=== PATIENT | female | born 1985 ===

== ENCOUNTER 2023-09-05 18:58 | Observation (INO) | payer BC ==
[2023-09-05] MEDS: HYDROmorphone 1 MG/ML Syringe IVPUSH ONE (20:02)
[2023-09-05] MEDS: Sodium Chloride 0.9% 1,000 ML IV ONE (20:02)
[2023-09-05] MEDS: Ondansetron 4 MG/2 ML SDV IVPUSH STA (20:24)
[2023-09-05] MEDS: fentaNYL 50 MCG/ML SDV ONE (20:28)
[2023-09-05] MEDS: Ondansetron 4 MG/2 ML SDV ONE (20:28)
[2023-09-05] MEDS: HYDROmorphone 1 MG/ML Syringe ONE (20:28)
[2023-09-05 20:59] LABS: APPEARANCE,URINE CLEAR (CLEAR); BILIRUBIN,URINE NEGATIVE (NEGATIVE); COLOR,URINE YELLOW (YELLOW); GLUCOSE,URINE NEGATIVE (NEGATIVE); KETONES,URINE 40 mg/dL (NEGATIVE); LEUKOCYTE ESTERASE,URINE NEGATIVE (NEGATIVE); NITRITE,URINE NEGATIVE (NEGATIVE); OCCULT BLOOD,URINE NEGATIVE (NEGATIVE); PH,URINE 8.5 (4.5-8.0); PROTEIN,URINE NEGATIVE (NEGATIVE); UROBILINOGEN,URINE 0.2 EU/dL (0.2-1.0)
[2023-09-05 21:02] LABS: BASOPHILS ABSOLUTE AUTO 0.05 10^3/uL (0.00-0.50); BASOPHILS PERCENT AUTO 0.4 % (0-1); HEMOGLOBIN 13.5 g/dL (12.0-16.0); IMMATURE GRAN ABSOLUTE AUTO 0.03 10^3/uL (0.00-0.49); IMMATURE GRAN PERCENT AUTO 0.3 % (0.0-4.9); LYMPHOCYTES ABSOLUTE AUTO 1.56 10^3/uL (0.60-5.00); MEAN CORPUSCULAR HEMOGLOBIN 28.8 pg (27.0-32.0); MEAN CORPUSCULAR HGB CONC 33.8 g/dL (32.0-36.0); MEAN CORPUSCULAR VOLUME 85.5 fL (83.0-97.0); MONOCYTES ABSOLUTE AUTO 0.37 10^3/uL (0.00-1.50); MONOCYTES PERCENT AUTO 3.3 % (0-10); NEUTROPHILS ABSOLUTE AUTO 9.16 x10^3/uL (1.80-8.00); PLATELET COUNT,PLT 263 10^3/uL (150-400); RED BLOOD CELL COUNT 4.68 x10^6/uL (4.00-5.50); WHITE BLOOD CELL COUNT,WBC 11.2 10^3/uL (4.0-11.0)
[2023-09-05 21:16] LABS: ALBUMIN 3.1 g/dL (3.4-5.0); BILIRUBIN TOTAL 0.6 mg/dL (0.0-1.0); CALCIUM 8.9 mg/dL (8.4-10.1); EST CRCL DRUG DOSING (CG) 59.15 mL/min; MAGNESIUM 1.8 mg/dL (1.8-2.4); POTASSIUM,K 3.3 mEq/L (3.5-5.0); PROTEIN TOTAL,TP 8.1 g/dL (6.4-8.2)
[2023-09-05] MEDS ORDERED: Acetaminophen 325 MG Tab PO PRN (21:52)
[2023-09-05] MEDS ORDERED: Promethazine 12.5 MG in Sodium Chloride 0.9% 50 ML IV PRN (21:52)
[2023-09-05] MEDS ORDERED: Ondansetron 4 MG Tab.DIS PO PRN (21:52)
[2023-09-05] MEDS: Potassium Chloride 10 MEQ Tab.ER PO ONE (22:03)
[2023-09-05] MEDS: Sodium Chloride 0.9% 1,000 ML IV SCH (22:03)
[2023-09-06] MEDS: Ondansetron 4 MG/2 ML SDV IV PRN (00:37)
[2023-09-06] MEDS: HYDROmorphone 1 MG/ML Syringe IVPUSH PRN (00:37)
[2023-09-06 07:36] LABS: BASOPHILS ABSOLUTE AUTO 0.03 10^3/uL (0.00-0.50); BASOPHILS PERCENT AUTO 0.3 % (0-1); EOSINOPHILS ABSOLUTE AUTO 0.01 10^3/uL (0.00-1.50); EOSINOPHILS PERCENT AUTO 0.1 % (0-6); HEMATOCRIT 38.6 % (37.0-47.0); IMMATURE GRAN ABSOLUTE AUTO 0.02 10^3/uL (0.00-0.49); IMMATURE GRAN PERCENT AUTO 0.2 % (0.0-4.9); LYMPHOCYTES ABSOLUTE AUTO 1.65 10^3/uL (0.60-5.00); LYMPHOCYTES PERCENT AUTO 16.1 % (24-44); MEAN CORPUSCULAR HEMOGLOBIN 28.6 pg (27.0-32.0); MEAN CORPUSCULAR HGB CONC 33.7 g/dL (32.0-36.0); MEAN CORPUSCULAR VOLUME 84.8 fL (83.0-97.0); MONOCYTES ABSOLUTE AUTO 0.44 10^3/uL (0.00-1.50); MONOCYTES PERCENT AUTO 4.3 % (0-10); NEUTROPHILS ABSOLUTE AUTO 8.07 x10^3/uL (1.80-8.00); PLATELET COUNT,PLT 249 10^3/uL (150-400); RED BLOOD CELL COUNT 4.55 x10^6/uL (4.00-5.50); WHITE BLOOD CELL COUNT,WBC 10.2 10^3/uL (4.0-11.0)
[2023-09-06] MEDS: Losartan 25 MG Tab PO SCH (07:40)
[2023-09-06 07:43] LABS: CALCIUM 8.4 mg/dL (8.4-10.1); CREATININE 0.8 mg/dL (0.6-1.0); EST CRCL DRUG DOSING (CG) 73.93 mL/min; MAGNESIUM 1.8 mg/dL (1.8-2.4); POTASSIUM,K 3.7 mEq/L (3.5-5.0)
[2023-09-06] MEDS: Acetaminophen/HYDROcodone 325-5 MG Tab PO ONE (07:44)
[2023-09-06] MEDS: Pantoprazole 40 MG Vial IVPUSH SCH (09:15)
== END 2023-09-06 09:50 | disposition home or self-care (01) ==
LOC: CC.ED 18:58 → CC.MS 21:32 → UNDOADMOB 21:35 → UNDODISOB 09-06 09:50
PROVIDERS: ADMIT Nurse Practitioner; ATTEND Nurse Practitioner
DX: R10.13 Epigastric pain (principal); R11.2 Nausea with vomiting, unspecified; I10 Essential (primary) hypertension; J45.909 Unspecified asthma, uncomplicated; Z79.899 Other long term (current) drug therapy; Z88.6 Allergy status to analgesic agent; Z91.041 Radiographic dye allergy status; Z91.013 Allergy to seafood
CPT/HCPCS: 36415; 74176; 80048; 80053; 81003; 83735; 84484; 85025; 93005; 96361; 96374; 96375; 96376; 99285-25; A9270-GY; G0378; J1170; J2405; J2470; J7030

== ENCOUNTER 2023-09-06 18:07 | Emergency (ER) | payer BC ==
[2023-09-06] MEDS: Promethazine 25 MG/ML SDV IM ONE (18:30)
[2023-09-06 18:43] LABS: BASOPHILS ABSOLUTE AUTO 0.04 10^3/uL (0.00-0.50); BASOPHILS PERCENT AUTO 0.4 % (0-1); EOSINOPHILS ABSOLUTE AUTO 0.04 10^3/uL (0.00-1.50); EOSINOPHILS PERCENT AUTO 0.4 % (0-6); HEMATOCRIT 35.6 % (37.0-47.0); HEMOGLOBIN 12.3 g/dL (12.0-16.0); IMMATURE GRAN ABSOLUTE AUTO 0.02 10^3/uL (0.00-0.49); IMMATURE GRAN PERCENT AUTO 0.2 % (0.0-4.9); LYMPHOCYTES ABSOLUTE AUTO 2.61 10^3/uL (0.60-5.00); LYMPHOCYTES PERCENT AUTO 24.9 % (24-44); MEAN CORPUSCULAR HEMOGLOBIN 29.1 pg (27.0-32.0); MEAN CORPUSCULAR HGB CONC 34.6 g/dL (32.0-36.0); MEAN CORPUSCULAR VOLUME 84.2 fL (83.0-97.0); MONOCYTES ABSOLUTE AUTO 0.52 10^3/uL (0.00-1.50); NEUTROPHILS ABSOLUTE AUTO 7.24 x10^3/uL (1.80-8.00); NEUTROPHILS PERCENT AUTO 69.1 % (41-71); PLATELET COUNT,PLT 223 10^3/uL (150-400); RED BLOOD CELL COUNT 4.23 x10^6/uL (4.00-5.50); WHITE BLOOD CELL COUNT,WBC 10.5 10^3/uL (4.0-11.0)
[2023-09-06 18:55] LABS: ALANINE AMINOTRANSFERASE,ALT 12 U/L (12-78); ALBUMIN 2.9 g/dL (3.4-5.0); ALKALINE PHOSPHATASE 78 U/L (46-116); ASPARTATE AMNIOTRANSFERASE,AST 10 U/L (15-37); BILIRUBIN TOTAL 0.6 mg/dL (0.0-1.0); BLOOD UREA NITROGEN,BUN 8 mg/dL (7-18); CALCIUM 8.5 mg/dL (8.4-10.1); CARBON DIOXIDE,CO2 22 mmol/L (21-32); CHLORIDE,CL 107 mEq/L (98-106); CREATININE 0.9 mg/dL (0.6-1.0); ESTIMATED GFR 83 mL/min (>=60); GLUCOSE RANDOM 88 mg/dL (75-99); MAGNESIUM 1.7 mg/dL (1.8-2.4); POTASSIUM,K 3.5 mEq/L (3.5-5.0); PROTEIN TOTAL,TP 6.8 g/dL (6.4-8.2); SODIUM,NA 144 mEq/L (136-145)
[2023-09-06 18:56] LABS: APPEARANCE,URINE CLEAR (CLEAR); BILIRUBIN,URINE NEGATIVE (NEGATIVE); COLOR,URINE LIGHT YELLOW (YELLOW); GLUCOSE,URINE NEGATIVE (NEGATIVE); KETONES,URINE 15 mg/dL (NEGATIVE); LEUKOCYTE ESTERASE,URINE NEGATIVE (NEGATIVE); NITRITE,URINE NEGATIVE (NEGATIVE); OCCULT BLOOD,URINE TRACE-INTACT (NEGATIVE); PROTEIN,URINE NEGATIVE (NEGATIVE); UROBILINOGEN,URINE 0.2 EU/dL (0.2-1.0)
[2023-09-06 18:58] LABS: RBC,URINE 0-5 /HPF (0-5)
[2023-09-06 18:59] LABS: BACTERIA,URINE NOT SEEN /HPF (NOT SEEN); EPITHELIAL CELLS,URINE OCCASIONAL /HPF (NOT SEEN); MUCUS,URINE NOT SEEN /HPF (NOT SEEN); WBC,URINE NOT SEEN /HPF (0-5)
[2023-09-06] MEDS: Magnesium Citrate Solution 296 ML Bottle PO ONE (20:18)
[2023-09-06] MEDS: Promethazine 25 MG Supp ONE (20:19)
[2023-09-06] MEDS: Promethazine 25 MG Supp RECTAL STA (20:21)
== END 2023-09-06 22:10 | disposition home or self-care (01) ==
LOC: CC.ED 18:07
DX: R11.2 Nausea with vomiting, unspecified (principal); I10 Essential (primary) hypertension; Z90.49 Acquired absence of other specified parts of digestive tract; Z79.899 Other long term (current) drug therapy; Z88.6 Allergy status to analgesic agent; Z91.041 Radiographic dye allergy status; Z91.013 Allergy to seafood
CPT/HCPCS: 36415; 80053; 81001; 83735; 85025; 96372; 99284; A9270-GY; J2550

== ENCOUNTER 2023-09-08 02:09 | Inpatient (IN) | payer BC ==
[2023-09-08] MEDS: HYDROmorphone 1 MG/ML Syringe SUBCUT ONE (03:08)
[2023-09-08 03:10] LABS: BASOPHILS ABSOLUTE AUTO 0.03 10^3/uL (0.00-0.50); BASOPHILS PERCENT AUTO 0.2 % (0-1); EOSINOPHILS ABSOLUTE AUTO 0.04 10^3/uL (0.00-1.50); EOSINOPHILS PERCENT AUTO 0.3 % (0-6); HEMATOCRIT 40.2 % (37.0-47.0); HEMOGLOBIN 13.3 g/dL (12.0-16.0); IMMATURE GRAN ABSOLUTE AUTO 0.03 10^3/uL (0.00-0.49); IMMATURE GRAN PERCENT AUTO 0.2 % (0.0-4.9); LYMPHOCYTES ABSOLUTE AUTO 1.89 10^3/uL (0.60-5.00); LYMPHOCYTES PERCENT AUTO 15.1 % (24-44); MEAN CORPUSCULAR HEMOGLOBIN 28.7 pg (27.0-32.0); MEAN CORPUSCULAR HGB CONC 33.1 g/dL (32.0-36.0); MEAN CORPUSCULAR VOLUME 86.8 fL (83.0-97.0); MONOCYTES ABSOLUTE AUTO 0.56 10^3/uL (0.00-1.50); MONOCYTES PERCENT AUTO 4.5 % (0-10); NEUTROPHILS PERCENT AUTO 79.7 % (41-71); PLATELET COUNT,PLT 191 10^3/uL (150-400); RED BLOOD CELL COUNT 4.63 x10^6/uL (4.00-5.50); WHITE BLOOD CELL COUNT,WBC 12.6 10^3/uL (4.0-11.0)
[2023-09-08 03:19] LABS: BILIRUBIN TOTAL 0.7 mg/dL (0.0-1.0); CALCIUM 8.6 mg/dL (8.4-10.1); CREATININE 0.9 mg/dL (0.6-1.0); EST CRCL DRUG DOSING (CG) 65.72 mL/min; MAGNESIUM 2.2 mg/dL (1.8-2.4); POTASSIUM,K 3.6 mEq/L (3.5-5.0); PROTEIN TOTAL,TP 7.5 g/dL (6.4-8.2)
[2023-09-08] MEDS: Sodium Chloride 0.9% 1,000 ML IV ONE (05:07)
[2023-09-08] MEDS: Benzocaine 20% Topical Spray UD MUCMEM ONE (05:08)
[2023-09-08] MEDS ORDERED: HYDROmorphone 1 MG/ML Syringe IVPUSH PRN (05:11)
[2023-09-08] MEDS ORDERED: Promethazine 12.5 MG in Sodium Chloride 0.9% 50 ML IV PRN (05:11)
[2023-09-08] MEDS: LORazepam 2 MG/ML SDV IM ONE (06:06)
[2023-09-08] MEDS: Lidocaine 2% 20 ML MDV ONE (06:16)
[2023-09-08] MEDS: LORazepam 2 MG/ML SDV IVPUSH ONE (06:20)
[2023-09-08 06:35] LABS: APPEARANCE,URINE SLIGHTLY CLOUDY (CLEAR); BILIRUBIN,URINE NEGATIVE (NEGATIVE); COLOR,URINE YELLOW (YELLOW); GLUCOSE,URINE NEGATIVE (NEGATIVE); KETONES,URINE 15 mg/dL (NEGATIVE); LEUKOCYTE ESTERASE,URINE NEGATIVE (NEGATIVE); NITRITE,URINE NEGATIVE (NEGATIVE); OCCULT BLOOD,URINE TRACE-INTACT (NEGATIVE); PROTEIN,URINE NEGATIVE (NEGATIVE)
[2023-09-08 06:45] LABS: RBC,URINE NOT SEEN /HPF (0-5); WBC,URINE NOT SEEN /HPF (0-5)
[2023-09-08 06:46] LABS: BACTERIA,URINE RARE /HPF (NOT SEEN); EPITHELIAL CELLS,URINE RARE /HPF (NOT SEEN); MUCUS,URINE NOT SEEN /HPF (NOT SEEN)
[2023-09-08] MEDS: Losartan 25 MG Tab PO SCH (07:56)
[2023-09-08] MEDS ORDERED: Non-Formulary Medication 1 Each (Losartan [Cozaar] 50 MG Tablet) PO SCH (08:00)
[2023-09-08] MEDS: HYDROmorphone 0.5 MG/0.5 ML Syringe SUBCUT ONE (08:48)
[2023-09-08] MEDS: Lactated Ringers 1,000 ML IV SCH (10:53)
[2023-09-08] MEDS: HYDROmorphone 0.5 MG/0.5 ML Syringe IVPUSH PRN (14:58)
[2023-09-08] MEDS: Ondansetron 4 MG/2 ML SDV IV PRN (15:03)
[2023-09-08 15:11] LABS: BASOPHILS ABSOLUTE AUTO 0.03 10^3/uL (0.00-0.50); BASOPHILS PERCENT AUTO 0.3 % (0-1); EOSINOPHILS ABSOLUTE AUTO 0.12 10^3/uL (0.00-1.50); EOSINOPHILS PERCENT AUTO 1.4 % (0-6); HEMOGLOBIN 12.4 g/dL (12.0-16.0); IMMATURE GRAN ABSOLUTE AUTO 0.01 10^3/uL (0.00-0.49); IMMATURE GRAN PERCENT AUTO 0.1 % (0.0-4.9); LYMPHOCYTES ABSOLUTE AUTO 1.33 10^3/uL (0.60-5.00); MEAN CORPUSCULAR HEMOGLOBIN 28.6 pg (27.0-32.0); MEAN CORPUSCULAR HGB CONC 33.5 g/dL (32.0-36.0); MEAN CORPUSCULAR VOLUME 85.3 fL (83.0-97.0); MONOCYTES ABSOLUTE AUTO 0.53 10^3/uL (0.00-1.50); NEUTROPHILS ABSOLUTE AUTO 6.83 x10^3/uL (1.80-8.00); NEUTROPHILS PERCENT AUTO 77.2 % (41-71); PLATELET COUNT,PLT 205 10^3/uL (150-400); RED BLOOD CELL COUNT 4.34 x10^6/uL (4.00-5.50); WHITE BLOOD CELL COUNT,WBC 8.9 10^3/uL (4.0-11.0)
[2023-09-08 15:21] LABS: CALCIUM 8.1 mg/dL (8.4-10.1); CREATININE 0.8 mg/dL (0.6-1.0); EST CRCL DRUG DOSING (CG) 73.93 mL/min; POTASSIUM,K 3.4 mEq/L (3.5-5.0)
[2023-09-09 09:49] LABS: BASOPHILS ABSOLUTE AUTO 0.03 10^3/uL (0.00-0.50); BASOPHILS PERCENT AUTO 0.3 % (0-1); EOSINOPHILS ABSOLUTE AUTO 0.09 10^3/uL (0.00-1.50); HEMATOCRIT 36.5 % (37.0-47.0); HEMOGLOBIN 12.2 g/dL (12.0-16.0); IMMATURE GRAN ABSOLUTE AUTO 0.01 10^3/uL (0.00-0.49); IMMATURE GRAN PERCENT AUTO 0.1 % (0.0-4.9); LYMPHOCYTES ABSOLUTE AUTO 1.79 10^3/uL (0.60-5.00); LYMPHOCYTES PERCENT AUTO 19.6 % (24-44); MEAN CORPUSCULAR HEMOGLOBIN 28.4 pg (27.0-32.0); MEAN CORPUSCULAR HGB CONC 33.4 g/dL (32.0-36.0); MEAN CORPUSCULAR VOLUME 85.1 fL (83.0-97.0); MONOCYTES ABSOLUTE AUTO 0.53 10^3/uL (0.00-1.50); MONOCYTES PERCENT AUTO 5.8 % (0-10); NEUTROPHILS ABSOLUTE AUTO 6.67 x10^3/uL (1.80-8.00); NEUTROPHILS PERCENT AUTO 73.2 % (41-71); PLATELET COUNT,PLT 198 10^3/uL (150-400); RED BLOOD CELL COUNT 4.29 x10^6/uL (4.00-5.50); WHITE BLOOD CELL COUNT,WBC 9.1 10^3/uL (4.0-11.0)
[2023-09-09 09:55] LABS: CALCIUM 8.3 mg/dL (8.4-10.1); CREATININE 0.7 mg/dL (0.6-1.0); EST CRCL DRUG DOSING (CG) 84.49 mL/min; MAGNESIUM 1.9 mg/dL (1.8-2.4); POTASSIUM,K 3.2 mEq/L (3.5-5.0)
[2023-09-09] MEDS ORDERED: Dextrose 5%-0.9% NaCl with KCl 1,000 ML IV SCH (11:00)
[2023-09-09] MEDS: Potassium Chloride 10 MEQ Tab.ER PO ONE (11:40)
[2023-09-09] MEDS: D5 1/2 NS w/ 20 mEq/L KCl 1,000 ML IV SCH (11:59)
[2023-09-09] MEDS: Acetaminophen 325 MG Tab PO PRN (12:09)
[2023-09-09] MEDS: hydrALAZINE 20 MG/ML SDV IVPUSH ONE (14:29)
[2023-09-09] MEDS: Losartan 25 MG Tab PO ONE (15:55)
[2023-09-10] MEDS: Losartan 100 MG Tab PO SCH (08:19)
[2023-09-10 08:38] LABS: BASOPHILS ABSOLUTE AUTO 0.03 10^3/uL (0.00-0.50); BASOPHILS PERCENT AUTO 0.3 % (0-1); EOSINOPHILS PERCENT AUTO 1.1 % (0-6); HEMATOCRIT 38.2 % (37.0-47.0); HEMOGLOBIN 12.6 g/dL (12.0-16.0); IMMATURE GRAN ABSOLUTE AUTO 0.02 10^3/uL (0.00-0.49); IMMATURE GRAN PERCENT AUTO 0.2 % (0.0-4.9); LYMPHOCYTES ABSOLUTE AUTO 1.92 10^3/uL (0.60-5.00); MEAN CORPUSCULAR HEMOGLOBIN 28.6 pg (27.0-32.0); MEAN CORPUSCULAR VOLUME 86.6 fL (83.0-97.0); MONOCYTES ABSOLUTE AUTO 0.52 10^3/uL (0.00-1.50); MONOCYTES PERCENT AUTO 5.9 % (0-10); NEUTROPHILS ABSOLUTE AUTO 6.15 x10^3/uL (1.80-8.00); NEUTROPHILS PERCENT AUTO 70.5 % (41-71); RED BLOOD CELL COUNT 4.41 x10^6/uL (4.00-5.50); WHITE BLOOD CELL COUNT,WBC 8.7 10^3/uL (4.0-11.0)
[2023-09-10 08:40] LABS: PLATELET COUNT,PLT 196 10^3/uL (150-400)
[2023-09-10 08:44] LABS: CALCIUM 8.3 mg/dL (8.4-10.1); CREATININE 0.7 mg/dL (0.6-1.0); EST CRCL DRUG DOSING (CG) 84.49 mL/min; MAGNESIUM 1.8 mg/dL (1.8-2.4); POTASSIUM,K 3.5 mEq/L (3.5-5.0)
[2023-09-10] MEDS: HYDROmorphone 1 MG/ML Syringe SUBCUT ONE (20:05)
[2023-09-10 20:26] VITALS: BP 187/88; PULSE 64
[2023-09-10] MEDS: Benzocaine 20% Topical Spray UD MUCMEM ONE (21:00)
== END 2023-09-10 21:15 | DRG 247 ==
LOC: CC.ED 02:09 → CC.MS 04:44 → UNDOADMIN 05:05 → CC.MS 05:05
PROVIDERS: ADMIT Nurse Practitioner; ATTEND Nurse Practitioner
PROC: 0D9670Z Drainage of Stomach with Drainage Device, Via Natural or Artificial Opening (ICD-10-PCS; principal; 2023-09-08)
DX: K56.609 Unspecified intestinal obstruction, unspecified as to partial versus complete obstruction (principal); I10 Essential (primary) hypertension; J45.909 Unspecified asthma, uncomplicated; Z88.8 Allergy status to other drugs, medicaments and biological substances; Z91.041 Radiographic dye allergy status; Z91.013 Allergy to seafood; Z98.891 History of uterine scar from previous surgery; Z98.84 Bariatric surgery status; Z90.49 Acquired absence of other specified parts of digestive tract; Z98.890 Other specified postprocedural states
CPT/HCPCS: 36415; 43752; 71045; 73560-RT; 74018; 74019; 74176; 80048; 80053; 81001; 83605; 83690; 83735; 85025; 96372; 99285-25; A9270-GY; J0360; J1170; J2060; J2405; J3480; J3490; J7030; J7120